=== PATIENT | male | born 1960 | race Caucasian/White ===

== ENCOUNTER 2023-04-28 07:49 | Emergency (ER) | payer MEDICAID, SELFPAY ==
[2023-04-28] VITALS (32 sets, daily range): BP systolic 138–184; BP diastolic 85–103; PULSE 53–84; RESP 18; TEMP 36.3; O2SAT 95–99; BMI 22.4
--- NOTE | 2023-04-28 08:23 | XR_ITS ---
CHEST TWO VIEW. COMPARISON: NONE. INDICATION: EPIGASTRIC PAIN. TECHNIQUE: TWO VIEW CHEST. FINDINGS: AORTIC TORTUOSITY. SMALL HIATAL HERNIA IS SUSPECTED. THE CARDIAC SILHOUETTE IS ENLARGED. DEGENERATIVE CHANGES. NO INFILTRATE OR EDEMA. NO EFFUSION OR PNEUMOTHORAX. IMPRESSION: NO ACUTE FINDINGS.
--- NOTE | 2023-04-28 08:32 | ED.GENADULT ---
HPI - General Adult General Date Seen: 04/28/23 Chief complaint: Chest Pain Stated complaint: Chest pain Time Seen by Provider: 04/28/23 08:15 Source: patient Mode of arrival: ambulatory Limitations: no limitations History of Present Illness HPI narrative: Patient is a 62-year-old male presenting to the emergency department for lower chest/epigastric pain. He has a history of stomach cancer with the Y valve procedure. States starting last night he developed epigastric pain that he describes as really bad indigestion. Pain seems to be constant since last night with nothing seems to make it better or worse. Has not noticed any hematochezia or melena. States he woke up this morning feeling warm and sweaty. She she that has since resolved. Has not had any shortness of breath, lightheadedness, dizziness, diarrhea, constipation, weakness, numbness. Has noticed there is a specific point in his chest over the rib that is tender to palpation. Is not taking anything for pain yet. Has had some nausea and vomiting. Has had a mild headache. Related Data Home Medications Medication Instructions Recorded Confirmed No Known Home Medications 04/28/23 04/28/23 Allergies Allergy/AdvReac Type Severity Reaction Status Date / Time No Known Drug Allergies Allergy Verified 04/28/23 08:01 [facility] Social History Smoking Status: Light tobacco smoker What tobacco products do you use: cigars Do you use any of these nicotine containing products: None Second hand tobacco smoke exposure: No How often do you have a drink containing alcohol: never How often do you have six or more drinks on one occasion: Never AUDIT-C Alcohol total score: 0 Non-prescribed substance use: denies use Exam Narrative: Exam Narrative: Const: Well-nourished, Well-developed, in mild distress Eyes: PERRL, no conjunctival injection, and symmetrical lids HENT: Atraumatic external nose and ears. Moist mucous membranes. Neck: Symmetric, trachea midline, No thyromegaly. CVS: RRR, No murmurs or gallops. Peripheral pulses 2+ and equal in all extremities RESP: Unlabored respiratory effort. Clear to auscultation bilaterally. GI: He epigastric tenderness, Nondistended, No rebound or guarding. MSK:Extremities w/o deformity, Normal Active ROM, tenderness to palpation over the right lower anterior rib 10 Skin: Warm, Dry. No rashes or lesions. Neuro: Normal Muscle tone, No focal neurological deficits. Psych: Awake, Alert, & Oriented x3. Appropriate mood and affect. Const: Vital Signs, click to edit/add: Vital Signs - 24 hr 04/28/23 08:01 04/28/23 08:02 04/28/23 08:03 Temperature 97.4 F L Pulse Rate 56 L 55 L Pulse Rate [Right Pulse Oximeter] 57 L Respiratory Rate 18 Blood Pressure 179/100 H Blood Pressure [Ri ght Upper Arm] 184/103 H Pulse Oximetry 95 98 98 [facility] 04/28/23 08:15 04/28/23 08:30 04/28/23 09:15 Temperature Pulse Rate 54 L 84 Pulse Rate [Right Pulse Oximeter] Respiratory Rate Blood Pressure 139/100 H Blood Pressure [Ri ght Upper Arm] Pulse Oximetry 97 97 [facility] 04/28/23 09:17 04/28/23 09:37 04/28/23 09:41 Temperature Pulse Rate 54 L 64 57 L Pulse Rate [Right Pulse Oximeter] Respiratory Rate Blood Pressure 157/90 H Blood Pressure [Ri ght Upper Arm] Pulse Oximetry 96 98 98 [facility] 04/28/23 09:45 04/28/23 10:01 04/28/23 10:15 Temperature Pulse Rate 55 L 53 L 55 L Pulse Rate [Right Pulse Oximeter] Respiratory Rate Blood Pressure 160/91 H Blood Pressure [Ri ght Upper Arm] Pulse Oximetry 97 99 98 [facility] 04/28/23 10:30 04/28/23 10:33 04/28/23 10:40 Temperature Pulse Rate 64 61 Pulse Rate [Right Pulse Oximeter] Respiratory Rate Blood Pressure 182/102 H Blood Pressure [Ri ght Upper Arm] Pulse Oximetry 99 98 [facility] 04/28/23 10:45 04/28/23 11:00 04/28/23 11:02 Temperature Pulse Rate 62 59 L 58 L Pulse Rate [Right Pulse Oximeter] Respiratory Rate Blood Pressure 168/89 H Blood Pressure [Ri ght Upper Arm] Pulse Oximetry 98 97 97 [facility] 04/28/23 11:32 04/28/23 11:32 04/28/23 11:36 Temperature Pulse Rate 58 L Pulse Rate [Right Pulse Oximeter] Respiratory Rate Blood Pressure 144/86 H 144/86 H Blood Pressure [Ri ght Upper Arm] Pulse Oximetry 97 Oxygen Delivery Me thod 04/28/23 11:45 04/28/23 12:00 04/28/23 12:02 Temperature Pulse Rate 60 57 L 57 L Pulse Rate [Right Pulse Oximeter] Respiratory Rate Blood Pressure 167/94 H Blood Pressure [Ri ght Upper Arm] Pulse Oximetry 98 97 97 Oxygen Delivery Me thod 04/28/23 12:15 Temperature Pulse Rate 54 L Pulse Rate [Right Pulse Oximeter] Respiratory Rate Blood Pressure Blood Pressure [Ri ght Upper Arm] Pulse Oximetry 97 Oxygen Delivery Me thod Course Vital Signs Vital signs: Initial Vital Signs Temperature 97.4 F L 04/28/23 08:01 Temperature Source Temporal Artery Scan 04/28/23 08:01 Pulse Rate 57 L 04/28/23 08:01 Pulse Rhythm Regular 04/28/23 08:01 Respiratory Rate 18 04/28/23 08:01 Blood Pressure 184/103 H 04/28/23 08:01 Blood Pressure Mean 130 H 04/28/23 08:01 Blood Pressure Position Sitting 04/28/23 08:01 Pulse Oximetry 95 04/28/23 08:01 Oxygen Delivery Method Room Air 04/28/23 08:01 Vital Signs Temperature 97.4 F L 04/28/23 08:01 Pulse Rate 57 L 04/28/23 08:01 Respiratory Rate 18 04/28/23 08:01 Blood Pressure 184/103 H 04/28/23 08:01 Pulse Oximetry 95 04/28/23 08:01 Oxygen Delivery Method Room Air 04/28/23 08:01 Temperature 97.4 F L 04/28/23 08:01 Pulse Rate 54 L 04/28/23 12:15 Respiratory Rate 18 04/28/23 08:01 Blood Pressure 167/94 H 04/28/23 12:02 Pulse Oximetry 97 04/28/23 12:15 Oxygen Delivery Method Room Air 04/28/23 08:01 Medications Administered Medications: Discontinued Medications Generic Name Dose Route Start Last Admin Trade Name Freq PRN Reason Stop Dose Admin Famotidine 20 mg 04/28/23 11:20 04/28/23 11:35 Famotidine 10 Mg/Ml Inj IVP 04/28/23 11:21 20 mg ONCE ONE Administration Lactated Ringer's 1,000 mls @ 1,000 mls/hr 04/28/23 09:03 04/28/23 10:35 Lactated Ringers 1000 Ml IV 04/28/23 10:02 Infused .Q1H ONE Infusion Ketorolac Tromethamine 15 mg 04/28/23 10:08 04/28/23 10:12 Ketorolac 15 Mg/Ml Inj IVP 04/28/23 10:09 15 mg ONCE ONE Administration Lidocaine HCl 7.5 ml 04/28/23 08:23 04/28/23 08:38 Lidocaine Hcl 4 % Top Soln 50 Ml Bottle PO 04/28/23 08:24 7.5 ml ONCE ONE Administration Lidocaine/Aluminum/Magnesium/Simeth 15 ml 04/28/23 08:23 04/28/23 08:38 Mag Hydrox/Aluminum Hyd/Simeth 30 Ml Oral.Susp PO 04/28/23 08:24 15 ml ONCE ONE Administration Metoclopramide HCl 10 mg 04/28/23 10:30 04/28/23 10:37 Metoclopramide Hcl 5 Mg/Ml Inj IVP 04/28/23 10:31 10 mg ONCE ONE Administration Morphine Sulfate 4 mg 04/28/23 09:40 04/28/23 09:46 Morphine 4 Mg/Ml Inj IVP 04/28/23 09:41 Not Given ONCE ONE Ondansetron HCl 4 mg 04/28/23 08:39 04/28/23 08:44 Ondansetron 2 Mg/Ml Inj IVP 04/28/23 08:40 4 mg ONCE ONE Administration Pantoprazole Sodium 40 mg 04/28/23 11:08 04/28/23 11:21 Pantoprazole Sodium 40 Mg Inj IVP 04/28/23 11:09 40 mg ONCE ONE Administration Medical Decision Making MDM Narrative Medical decision making narrative: The patient is a 62-year-old male presenting for lower chest/epigastric pain. His symptoms seem unlikely to be ACS considered location of the pain for with his history will order an EKG, chest x-ray, troponins. He is having some epigastric she is also in differential includes pancreatitis, SBO, gastric ulcers, gastric reflux. CBC, lipase, COVID/flu/RSV, CMP ordered. GI cocktail ordered. Symptoms do not improve with the GI cocktail. He was given Zofran for nausea. CBC and CMP showed no concerning abnormalities. EKG showed no concerning findings. Does have a bifascicular. Troponin and repeat troponin showed no concerning findings. Chest x-ray reviewed by myself and the radiologist was concerning findings COVID/flu/RSV is negative. I did order CT scan with IV contrast of the abdomen pelvis. This was done and returned showing possibly thickened lower esophagus was some fluid in the lower esophagus and mild distension. There is also a hiatal hernia. Patient continues to be symptomatic and symptoms seem to come and go. He states when he burps the symptoms seem to get a lot better. Considering his history we will contact his surgeon the see if there is anything further we should be worried about other than reflux. After speaking to his surgical team they recommend transfer for immediate surgery for concern of possible incarcerated internal hernia. They recommend we place an NG tube will be unable to do that here at this time. Lab Data Labs: Lab Results 04/28/23 04/28/23 04/28/23 Range/Units 08:05 08:50 10:50 WBC 5.57 (4.50-11.00) K/uL RBC 4.39 (4.30-5.90) m/uL Hgb 14.3 (13.5-17.5) gm/dL Hct 43.6 (37.0-53.0) % MCV 99 (80-100) fL MCH 33 (26-34) pg MCHC 33 (32-36) gm/dL RDW Coeff of Milind 13.1 (11.5-15.5) % Plt Count 176 (140-440) K/uL Neut % (Auto) 70.5 (42.0-72.0) % Lymph % (Auto) 17.1 L (20-44) % [place] % (Auto) 6.1 (0.0-11.0) % Eos % (Auto) 5.4 (0.0-7.0) % Baso % (Auto) 0.7 (0.0-3.0) % Neut # (Auto) 3.93 (1.7-7.0) K/uL Lymph # (Auto) 1.00 (0.90-2.90) K/uL [place] # (Auto) 0.30 (0.00-0.90) K/UL Eos # (Auto) 0.30 (0.00-0.50) K/uL Baso # (Auto) 0.04 (0.00-0.30) K/uL Abs Immat Gran (auto) 0.01 (0.00-0.30) K/uL Imm/Tot Granulo (auto) 0.2 % Sodium 140 (135-149) mmol/L Potassium 4.3 (3.6-5.1) mmol/L Chloride 107 (96-114) mmol/L Carbon Dioxide 28 (20-32) mmol/L Anion Gap 5 L (7-15) mEq/L BUN 12 (7-30) mg/dL Creatinine 0.8 (0.5-1.5) mg/dL Estimated Creat Clear 80.04 Estimated GFR 99 ml/min Glucose 121 H (60-115) mg/dL Calcium 9.1 (8.4-10.6) mg/dL Total Bilirubin 0.7 (0.1-1.5) mg/dL AST 26 (12-35) U/L ALT 14 (4-50) U/L Alkaline Phosphatase 96 (40-150) U/L Total Protein 7.4 (6.0-8.3) g/dL Albumin 4.5 (3.3-5.0) g/dL Lipase 25 (23-300) U/L SARS-CoV-2 (PCR) Negative SARS-CoV-2 (Negative) Influenza Type A (PCR) Negative PCR FLU A (Negative) Influenza Type B (PCR) Negative PCR FLU B (Negative) RSV (PCR) Negative PCR RSV (Negative) POC Troponin I 0.01 0.01 (0.01-0.04) ng/ml Imaging Data Chest x-ray: Radiologist's impression: FINDINGS: AORTIC TORTUOSITY. SMALL HIATAL HERNIA IS SUSPECTED. THE CARDIAC SILHOUETTE IS ENLARGED. DEGENERATIVE CHANGES. NO INFILTRATE OR EDEMA. NO EFFUSION OR PNEUMOTHORAX. IMPRESSION: NO ACUTE FINDINGS. CT scan abdomen and pelvis: Radiologist's impression: POSTOPERATIVE CHANGES OF GASTRECTOMY. SOME OF BOWEL CONTENTS EXTEND INTO THE LOWER THORAX. DISTENTION OF THE DISTAL ESOPHAGUS NOTED WITH FLUID AND POSSIBLE WALL THICKENING. COMPARISON WITH OUTSIDE STUDIES FROM [facility] RECOMMENDED. SUBCENTIMETER HYPODENSITIES IN THE LIVER WHICH ARE TOO SMALL TO CHARACTERIZE, AGAIN COMPARISON WITH OUTSIDE STUDIES RECOMMENDED. MULTIPLE SUBCENTIMETER LYMPH NODES IN THE UPPER ABDOMEN OMENTAL FAT ARE INDETERMINATE. NO BOWEL OBSTRUCTION. NO ABSCESS OR DRAINABLE FLUID COLLECTION. ECG Data Attestation: I personally reviewed and interpreted this ECG as follows: Prior ECG tracings: not available for review Interpretation: Sinus bradycardia rate 55 beats per minute, bifascicular block, normal FL interval, no ST or T-wave abnormalities Discharge Plan Discharge Clinical Impression: Abdominal pain Qualifiers: Abdominal location: epigastric Qualified Code(s): R10.13 - Epigastric pain Patient Disposition: [facility] Discharge Location: Condition: Guarded Prescriptions: No Action No Known Home Medications Follow Up/Referrals: Provider,Not a Local [Primary Care Provider] - Stand Alone Forms: [employer] Info Instructions
[2023-04-28] MEDS: MAG HYDROX/ALUMINUM HYD/SIMETH 30 ML ORAL.SUSP 15 ML PO (08:38)
[2023-04-28] MEDS: lidocaine HCL 4 % TOP SOLN 50 ML BOTTLE 7.5 ML PO (08:38)
[2023-04-28] MEDS: ONDANSETRON 2 MG/ML inj 4 MG IVP (08:44)
[2023-04-28 08:52] LABS: Basophils Absolute Auto 0.04 K/uL (0.00-0.30); Basophils Percent Auto 0.7 % (0.0-3.0); Eosinophils Percent Auto 5.4 % (0.0-7.0); Hematocrit 43.6 % (37.0-53.0); Hemoglobin* 14.3 gm/dL (13.5-17.5); Immature Granulocytes Abs Auto 0.01 K/uL (0.00-0.30); Immature Granulocytes Pct Auto 0.2 %; Lymphocytes Percent Auto 17.1 % (20-44); Mean Corpuscular HGB Conc 33 gm/dL (32-36); Mean Corpuscular Hemoglobin 33 pg (26-34); Mean Corpuscular Volume 99 fL (80-100); Monocytes Percent Auto 6.1 % (0.0-11.0); Neutrophils Absolute Auto 3.93 K/uL (1.7-7.0); Neutrophils Percent Auto 70.5 % (42.0-72.0); Platelet Count* 176 K/uL (140-440); RDW Coefficient of Variation % 13.1 % (11.5-15.5); Red Blood Count 4.39 m/uL (4.30-5.90); White Blood Count* 5.57 K/uL (4.50-11.00)
--- NOTE | 2023-04-28 08:53 | CT_ITS ---
CT ABDOMEN AND PELVIS WITH CONTRAST. INDICATION: EPIGASTRIC PAIN. TECHNIQUE: POSTCONTRAST CT ABDOMEN AND PELVIS. 81 ML ISOVUE 370 INTRAVENOUS CONTRAST. COMPARISON: NONE. FINDINGS: NO BASILAR INFILTRATE WITHIN LUNGS. NO PLEURAL EFFUSION OR SUSPICIOUS PULMONARY NODULE. POSTOPERATIVE CHANGES OF GASTRECTOMY NOTED. BOWEL CONTENTS ARE PRESENT WITHIN THE LOWER THORAX MEASURING UP TO 9.6 CM. MILD FLUID DISTENTION OF THE DISTAL ESOPHAGUS NOTED WITH POSSIBLE WALL THICKENING. SUBCENTIMETER HYPODENSITIES ARE PRESENT WITHIN THE LIVER WHICH ARE TOO SMALL TO CHARACTERIZE. THE GALLBLADDER IS ABSENT. NO BILIARY OBSTRUCTION. THE SPLEEN IS NOT ENLARGED. NO ADRENAL LESION. NO HYDRONEPHROSIS. NO SOLID RENAL MASS. PANCREATIC ATROPHY IS PRESENT. ATHEROSCLEROTIC CHANGES WITH ECTATIC DISTAL AORTA. THE BLADDER IS NORMAL. NO BOWEL OBSTRUCTION OR FREE AIR. NO FREE FLUID OR ABSCESS. DEGENERATIVE CHANGES ARE PRESENT AT BOTH HIPS WITH SUBCHONDRAL CYSTIC CHANGE. NUMEROUS SUBCENTIMETER LYMPH NODES ARE PRESENT WITHIN THE UPPER ABDOMEN OMENTAL FAT. BILATERAL PARS DEFECTS ARE PRESENT AT L5. THERE IS NO VERTEBRAL BODY COMPRESSION FRACTURE. IMPRESSION: POSTOPERATIVE CHANGES OF GASTRECTOMY. SOME OF BOWEL CONTENTS EXTEND INTO THE LOWER THORAX. DISTENTION OF THE DISTAL ESOPHAGUS NOTED WITH FLUID AND POSSIBLE WALL THICKENING. COMPARISON WITH OUTSIDE STUDIES FROM [facility] RECOMMENDED. SUBCENTIMETER HYPODENSITIES IN THE LIVER WHICH ARE TOO SMALL TO CHARACTERIZE, AGAIN COMPARISON WITH OUTSIDE STUDIES RECOMMENDED. MULTIPLE SUBCENTIMETER LYMPH NODES IN THE UPPER ABDOMEN OMENTAL FAT ARE INDETERMINATE. NO BOWEL OBSTRUCTION. NO ABSCESS OR DRAINABLE FLUID COLLECTION.
[2023-04-28 08:54] LABS: Slide Review Reflex No
[2023-04-28 09:04] LABS: Chloride* 107 mmol/L (96-114)
[2023-04-28 09:05] LABS: Albumin* 4.5 g/dL (3.3-5.0); Potassium* 4.3 mmol/L (3.6-5.1); Sodium* 140 mmol/L (135-149)
[2023-04-28 09:08] LABS: Alanine Aminotransferase* 14 U/L (4-50); Alkaline Phosphatase* 96 U/L (40-150); Anion Gap 5 mEq/L (7-15); Aspartate Amino Transferase* 26 U/L (12-35); Bilirubin Total* 0.7 mg/dL (0.1-1.5); Blood Urea Nitrogen* 12 mg/dL (7-30); Calcium* 9.1 mg/dL (8.4-10.6); Carbon Dioxide* 28 mmol/L (20-32); Creatinine* 0.8 mg/dL (0.5-1.5); Est. Creatinine Clearance* 80.04; Estimated Glomerular Filt Rate 99 ml/min; Total Protein* 7.4 g/dL (6.0-8.3)
[2023-04-28] MEDS: LACTATED RINGERS 1000 ML 1,000 ML IV (09:16)
[2023-04-28 09:24] LABS: Glucose* 121 mg/dL (60-115)
[2023-04-28 09:39] LABS: PCR FLU A Negative PCR FLU A (Negative); PCR FLU B Negative PCR FLU B (Negative); PCR RSV Negative PCR RSV (Negative); SARS PCR* Negative SARS-CoV-2 (Negative)
[2023-04-28] MEDS: KETOROLAC 15 MG/ML inj IVP (10:12)
[2023-04-28 10:20] LABS: Troponin, Point-of-Care* 0.01 ng/ml (0.01-0.04)
[2023-04-28] MEDS: METOCLOPRAMIDE HCL 5 MG/ML INJ 10 MG IVP (10:37)
[2023-04-28 11:08] LABS: Troponin, Point-of-Care* 0.01 ng/ml (0.01-0.04)
[2023-04-28] MEDS: PANTOPRAZOLE SODIUM 40 MG INJ IVP (11:21)
[2023-04-28] MEDS: FAMOTIDINE 10 MG/ML inj 20 MG IVP (11:35)
[2023-04-28 11:39] LABS: Lipase* 25 U/L (23-300)
--- NOTE | 2023-04-28 13:33 | PC.NURSE ---
Dr. Sharp requested NGT be placed per Chucho URIAS. Spoke with our surgeon to discuss care. Per Dr. Andrea, do not place NGT here. Let [facility] do this as patient does not have barely any stomach and we could go into intestine and cause complications. Recommends this be done under fluoroscopy or with the specialists at [facility]. Communicated this to Dr. Sharp and to [facility] nurse, Damian.
--- NOTE | 2023-04-28 13:41 | ED.NURSE ---
Report given Jason on FR5C. All questions answered.
--- NOTE | 2023-04-28 13:55 | ED.NURSE ---
Report given to EMS
== END 2023-04-28 14:00 | disposition short-term general hospital (02) ==
PROVIDERS: Emergency Provider Student in an Organized Health Care Education/Training Program
DX: R10.13 Epigastric pain (principal)
CPT/HCPCS: 36415; 71046; 74177; 80053; 83690; 84484; 85025; 87631; 93005; 96374; 96375; 99284; 99285; A9270; C9113; J1885; J2405; J2765; J7120; Q9967; S0028

== ENCOUNTER 2023-04-28 13:55 | Outpatient (CLI) | payer MEDICAID, SELFPAY | END 2023-04-28 13:56 | disposition home or self-care (01) | LOC: AMB 04-29 12:49 | PROVIDERS: Visit Provider Student in an Organized Health Care Education/Training Program | DX: R10.13 Epigastric pain (principal) | CPT/HCPCS: A0425; A0428 ==

== ENCOUNTER 2023-07-13 12:44 | Emergency (ER) | payer MEDICAID, SELFPAY ==
[2023-07-13] VITALS (34 sets, daily range): BP systolic 131–205; BP diastolic 79–112; PULSE 62–87; RESP 20; TEMP 36.9; O2SAT 93–100; BMI 23.3
--- NOTE | 2023-07-13 13:15 | CT_ITS ---
Patient: DEISY POLLARD Facility:?[facility] Patient ID:?[id number] Site Patient ID:?[id number]. Site :?[id number] Study:?CT-Abdomen/Pelvis 95CC ISOVUE 370-07/13/2023 2:28:44 PM Ordering Physician:?DR. SPANGLER Final Report: Indication: EPIGASTRIC PAIN. LOWER CP, HX OF INCARCERATED HERNIA Technique: CTA chest, pulmonary embolism protocol and CT abdomen/pelvis with IV contrast, 95 mL Isovue 370 Comparison: CT abdomen/pelvis on April 28, 2023 Findings: The visualized thyroid nodules. No pathologically enlarged lymph nodes throughout the thorax. The heart is normal in size. No pericardial effusion. The thoracic aorta and pulmonary artery are within normal limits in caliber. Examination of the pulmonary arteries is limited secondary to contrast bolus timing; however, there is no obvious pulmonary embolism. Small left pleural effusion with minimal adjacent atelectatic lung. Otherwise, no focal airspace consolidation. No pleural effusion. No suspicious pulmonary nodules or masses. The airways are patent. There is redemonstration of postsurgical changes of gastrectomy with several loops of bowel noted in the left lower thorax. There is no evidence of bowel obstruction or inflammation. No pneumatosis intestinalis. Postsurgical changes of cholecystectomy. No significant biliary ductal dilatation. The liver, spleen, pancreas, and bilateral adrenal glands are within normal limits. The kidneys are normal in size and perfusion a normal fashion. No suspicious enhancing renal masses or lesions. Subcentimeter hypodensities in the bilateral lower poles, too small to characterize, but likely benign cysts. No renal calculi or hydroureteronephrosis. The bladder is unremarkable. The seminal vesicles, prostate, and visualized external genitalia are within normal limits. There is no evidence of bowel obstruction or inflammation. No free air. Trace pelvic free fluid. No pathologically enlarged lymph nodes throughout the abdomen or pelvis. Minimal fusiform aneurysmal dilatation of the infrarenal abdominal aorta, measuring 3.2 centimeters in diameter. The osseous structures are unremarkable for the patient`s age. Impression: 1. Examination of the pulmonary arteries is limited secondary to contrast bolus timing; however, there is no obvious pulmonary embolism. 2. Small left pleural effusion with minimal adjacent atelectatic lung. 3. Redemonstration of postsurgical changes of gastrectomy with several loops of bowel noted in the left lower thorax, increased in size compared to prior exam. There is no evidence of bowel obstruction or inflammation. No pneumatosis intestinalis. 4. No pathologically enlarged lymph nodes throughout the chest, abdomen, or pelvis. 5. No significant free fluid or free air. Please note that all CT scans at this facility use dose modulation, iterative reconstruction, and/or weight-based dosing when appropriate to reduce radiation dose to as low as reasonably achievable. Dictated by Rudi Brown MD @ 07/13/2023 2:45:21 PM Signed by:?Rudi Brown MD @07/13/2023 2:45:21 PM (Electronic Signature)
--- NOTE | 2023-07-13 13:17 | CT_ITS ---
Patient: DEISY POLLARD Facility:?[facility] Patient ID:?[id number] Site Patient ID:?[id number]. Site :?[id number] Study:?CT-Chest PE 95CC ISOVUE 370-07/13/2023 2:27:31 PM Ordering Physician:?DR. SPANGLER Final Report: Indication: EPIGASTRIC PAIN. LOWER CP, HX OF INCARCERATED HERNIA Technique: CTA chest, pulmonary embolism protocol and CT abdomen/pelvis with IV contrast, 95 mL Isovue 370 Comparison: CT abdomen/pelvis on April 28, 2023 Findings: The visualized thyroid nodules. No pathologically enlarged lymph nodes throughout the thorax. The heart is normal in size. No pericardial effusion. The thoracic aorta and pulmonary artery are within normal limits in caliber. Examination of the pulmonary arteries is limited secondary to contrast bolus timing; however, there is no obvious pulmonary embolism. Small left pleural effusion with minimal adjacent atelectatic lung. Otherwise, no focal airspace consolidation. No pleural effusion. No suspicious pulmonary nodules or masses. The airways are patent. There is redemonstration of postsurgical changes of gastrectomy with several loops of bowel noted in the left lower thorax. There is no evidence of bowel obstruction or inflammation. No pneumatosis intestinalis. Postsurgical changes of cholecystectomy. No significant biliary ductal dilatation. The liver, spleen, pancreas, and bilateral adrenal glands are within normal limits. The kidneys are normal in size and perfusion a normal fashion. No suspicious enhancing renal masses or lesions. Subcentimeter hypodensities in the bilateral lower poles, too small to characterize, but likely benign cysts. No renal calculi or hydroureteronephrosis. The bladder is unremarkable. The seminal vesicles, prostate, and visualized external genitalia are within normal limits. There is no evidence of bowel obstruction or inflammation. No free air. Trace pelvic free fluid. No pathologically enlarged lymph nodes throughout the abdomen or pelvis. Minimal fusiform aneurysmal dilatation of the infrarenal abdominal aorta, measuring 3.2 centimeters in diameter. The osseous structures are unremarkable for the patient`s age. Impression: 1. Examination of the pulmonary arteries is limited secondary to contrast bolus timing; however, there is no obvious pulmonary embolism. 2. Small left pleural effusion with minimal adjacent atelectatic lung. 3. Redemonstration of postsurgical changes of gastrectomy with several loops of bowel noted in the left lower thorax, increased in size compared to prior exam. There is no evidence of bowel obstruction or inflammation. No pneumatosis intestinalis. 4. No pathologically enlarged lymph nodes throughout the chest, abdomen, or pelvis. 5. No significant free fluid or free air. Please note that all CT scans at this facility use dose modulation, iterative reconstruction, and/or weight-based dosing when appropriate to reduce radiation dose to as low as reasonably achievable. Dictated by Rudi Brown MD @ 07/13/2023 2:44:45 PM Signed by:?Rudi Brown MD @07/13/2023 2:44:45 PM (Electronic Signature)
--- NOTE | 2023-07-13 13:20 | ED.GENADULT ---
HPI - General Adult General Date Seen: 07/13/23 Chief complaint: Chest Pain Stated complaint: chest p-ain Time Seen by Provider: 07/13/23 13:09 Source: patient, RN notes reviewed and old records reviewed Mode of arrival: ambulatory Limitations: no limitations History of Present Illness HPI narrative: Patient is a 62-year-old male here with his girlfriend for evaluation of epigastric/lower chest pain. His girlfriend notes that he had all of his teeth pulled this morning. That apparently went smoothly and he had been feeling okay. At 10:30 a.m. at home he was sitting on the couch and he developed this pain. He notes that it radiates to the left scapular area, he says is severe. He feels a little nauseated but has not had any vomiting. 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 He status post cholecystectomy. He had a hiatal hernia repaired in April of this year at [facility], and then was seen here shortly afterwards with some epigastric pain, had a CT scan and was sent to [facility] with concerns about a strangulated internal hernia. He does feel today's pain is somewhat similar to that. He denies pleuritic pain, does feel somewhat short of breath. He has not had cough or fever. He denies diarrhea or black/bloody stool. He does not have a history of prior coronary artery disease. He has been a smoker, he says mostly cigars, he quit this habit yesterday. He does not drink alcohol. Denies medication allergies. Related Data Home Medications Medication Instructions Recorded Confirmed amoxicillin 500 mg capsule 500 mg PO 3XD 07/13/23 07/13/23 celecoxib 200 mg capsule 200 mg PO BID 07/13/23 07/13/23 chlorhexidine gluconate 0.12 % PO 07/13/23 mouthwash hydrocodone 5 mg-acetaminophen 325 2 tab PO BID 07/13/23 07/13/23 mg tablet ibuprofen 600 mg tablet 1,200 mg PO BID 07/13/23 07/13/23 ondansetron 4 mg disintegrating mg PO 07/13/23 tablet Allergies Allergy/AdvReac Type Severity Reaction Status Date / Time No Known Drug Allergies Allergy Verified 07/13/23 15:01 Review of Systems Status of ROS: Reports: 10 or more systems reviewed and unremarkable except as noted in History and below [facility] Social History Smoking Status: Current every day smoker What tobacco products do you use: cigars Do you use any of these nicotine containing products: None Second hand tobacco smoke exposure: No How often do you have a drink containing alcohol: never How often do you have six or more drinks on one occasion: Never AUDIT-C Alcohol total score: 0 Non-prescribed substance use: denies use Exam Narrative: Exam Narrative: Vital signs as noted above. In general, an alert, elderly male. He is sitting up in the bed, looks uncomfortable and slightly pale. Head: Normocephalic, atraumatic. Eyes: Pupils are equal reactive. Extraocular movements are full. No conjunctival pallor. ENT: Mucous membranes are moist. Throat is normal. Neck: Supple without lymphadenopathy. Heart: Regular rate and rhythm. No murmur or rub. Lungs: Clear bilaterally. No increased work of breathing, crackles or wheezes. Abdomen: He has some epigastric and right upper quadrant tenderness without rebound guarding or rigidity. Bowel sounds are quiet. Extremities: Well perfused. No edema. No calf tenderness. Pulses are equal in all 4 extremities. Neurologic: Patient is alert and oriented to person and place. Speech is fluent. Face is symmetric. Moves all extremities equally. Affect: Normal. Skin: Warm and dry. Well perfused. Const: Vital Signs, click to edit/add: Vital Signs - 24 hr 07/13/23 13:01 07/13/23 13:16 07/13/23 13:17 Temperature 98.4 F Pulse Rate 69 62 Pulse Rate [Pulse Oximeter] 67 Respiratory Rate 20 Blood Pressure 185/105 H Blood Pressure [Le ft Upper Arm] 205/109 H Pulse Oximetry 99 99 99 Oxygen Delivery Me thod Room Air 07/13/23 13:30 07/13/23 13:42 07/13/23 13:47 Temperature Pulse Rate 63 65 62 Pulse Rate [Pulse Oximeter] Respiratory Rate Blood Pressure 183/98 H 194/98 H Blood Pressure [Le ft Upper Arm] Pulse Oximetry 100 98 99 Oxygen Delivery Me thod 07/13/23 14:00 07/13/23 14:02 07/13/23 14:03 Temperature Pulse Rate 73 74 72 Pulse Rate [Pulse Oximeter] Respiratory Rate Blood Pressure 170/110 H Blood Pressure [Le ft Upper Arm] Pulse Oximetry 96 98 95 Oxygen Delivery Me thod 07/13/23 14:30 07/13/23 14:32 07/13/23 14:33 Temperature Pulse Rate 71 75 72 Pulse Rate [Pulse Oximeter] Respiratory Rate Blood Pressure 194/103 H Blood Pressure [Le ft Upper Arm] Pulse Oximetry 96 95 95 Oxygen Delivery Me thod 07/13/23 14:47 07/13/23 15:00 07/13/23 15:02 Temperature Pulse Rate 68 63 87 Pulse Rate [Pulse Oximeter] Respiratory Rate Blood Pressure 185/101 H 184/96 H Blood Pressure [Le ft Upper Arm] Pulse Oximetry 93 98 95 Oxygen Delivery Me thod 07/13/23 15:17 07/13/23 15:30 07/13/23 15:47 Temperature Pulse Rate 66 64 66 Pulse Rate [Pulse Oximeter] Respiratory Rate Blood Pressure 169/79 H 170/89 H Blood Pressure [Le ft Upper Arm] Pulse Oximetry 94 96 94 Oxygen Delivery Me thod 07/13/23 16:00 07/13/23 16:02 07/13/23 16:17 Temperature Pulse Rate 62 71 67 Pulse Rate [Pulse Oximeter] Respiratory Rate Blood Pressure 165/110 H 176/100 H Blood Pressure [Le ft Upper Arm] Pulse Oximetry 95 97 95 Oxygen Delivery Me thod 07/13/23 16:30 07/13/23 16:32 07/13/23 16:47 Temperature Pulse Rate 68 67 66 Pulse Rate [Pulse Oximeter] Respiratory Rate Blood Pressure 193/111 H 144/112 H Blood Pressure [Le ft Upper Arm] Pulse Oximetry 95 96 96 Oxygen Delivery Me thod Documenting provider has reviewed patient's vital signs: yes Course Course ED Course: On arrival, patient had an EKG which by my review showed a sinus rhythm, right bundle-branch block, no significant change compared to April in this year. His initial troponin is 0. He was maintained on cardiac and pulse ox monitoring. I have ordered morphine, Zofran, a L of normal saline. Diagnostic considerations include acute coronary syndrome, pulmonary embolism, dissection, gastric perforation, volvulus or internal hernia, other bowel obstruction, pancreatitis, gastritis, among others. I think given his gastric cancer, pain in the left shoulder blade area and shortness of breath, it is reasonable to rule him out for pulmonary embolism. I think he needs a CT scan of his abdomen to look for evidence of obstruction from hernia, volvulus, adhesions etcetera. Therefore, I have elected to do a CT of the chest abdomen and pelvis at this time. Other labs are pending. Labs are notable for white blood cell count of 13.5, normal hemoglobin and platelets. Left shift with 92% neutrophils. D-dimer is normal at 0.4. Metabolic panel is normal aside from a blood sugar of 147. Lactate 1.2. LFTs unremarkable, CRP is less than 0.5, lipase 29. Urinalysis is negative. Point of care troponin is 0. CT scan of the chest abdomen and pelvis read as follows by Radiology:Comparison: CT abdomen/pelvis on April 28, 2023 Findings: The visualized thyroid nodules. No pathologically enlarged lymph nodes throughout the thorax. The heart is normal in size. No pericardial effusion. The thoracic aorta and pulmonary artery are within normal limits in caliber. Examination of the pulmonary arteries is limited secondary to contrast bolus timing; however, there is no obvious pulmonary embolism. Small left pleural effusion with minimal adjacent atelectatic lung. Otherwise, no focal airspace consolidation. No pleural effusion. No suspicious pulmonary nodules or masses. The airways are patent. There is redemonstration of postsurgical changes of gastrectomy with several loops of bowel noted in the left lower thorax. There is no evidence of bowel obstruction or inflammation. No pneumatosis intestinalis. Postsurgical changes of cholecystectomy. No significant biliary ductal dilatation. The liver, spleen, pancreas, and bilateral adrenal glands are within normal limits. The kidneys are normal in size and perfusion a normal fashion. No suspicious enhancing renal masses or lesions. Subcentimeter hypodensities in the bilateral lower poles, too small to characterize, but likely benign cysts. No renal calculi or hydroureteronephrosis. The bladder is unremarkable. The seminal vesicles, prostate, and visualized external genitalia are within normal limits. There is no evidence of bowel obstruction or inflammation. No free air. Trace pelvic free fluid. No pathologically enlarged lymph nodes throughout the abdomen or pelvis. Minimal fusiform aneurysmal dilatation of the infrarenal abdominal aorta, measuring 3.2 centimeters in diameter. The osseous structures are unremarkable for the patient`s age. Impression: 1. Examination of the pulmonary arteries is limited secondary to contrast bolus timing; however, there is no obvious pulmonary embolism. 2. Small left pleural effusion with minimal adjacent atelectatic lung. 3. Redemonstration of postsurgical changes of gastrectomy with several loops of bowel noted in the left lower thorax, increased in size compared to prior exam. There is no evidence of bowel obstruction or inflammation. No pneumatosis intestinalis. 4. No pathologically enlarged lymph nodes throughout the chest, abdomen, or pelvis. 5. No significant free fluid or free air. Given patient's history in April, I did reach out to his care team at [facility]. His GI surgeon is Dr. Richardson, hepatobiliary surgery. Phone number [phone]. The nurse practitioner with hepatobiliary surgery who saw him most recently was Elva Mendoza, phone number [phone]. I spoke with Elva, she reviewed his CT scans from today in comparison to scans from several days ago that he had done there and feels he should be transferred to [place] as he has re herniated his hiatal hernia. Arrangements being made for transfer to [facility]. He seems much more comfortable, blood pressure has come down as his pain was controlled. Vital Signs Vital signs: Initial Vital Signs Temperature 98.4 F 07/13/23 13:01 Temperature Source Temporal Artery Scan 07/13/23 13:01 Pulse Rate 67 07/13/23 13:01 Respiratory Rate 20 07/13/23 13:01 Blood Pressure 205/109 H 07/13/23 13:01 Blood Pressure Mean 141 H 07/13/23 13:01 Blood Pressure Position Supine 07/13/23 13:01 Pulse Oximetry 99 07/13/23 13:01 Oxygen Delivery Method Room Air 07/13/23 13:01 Vital Signs Temperature 98.4 F 07/13/23 13:01 Pulse Rate 67 07/13/23 13:01 Respiratory Rate 20 07/13/23 13:01 Blood Pressure 205/109 H 07/13/23 13:01 Pulse Oximetry 99 07/13/23 13:01 Oxygen Delivery Method Room Air 07/13/23 13:01 Temperature 98.4 F 07/13/23 13:01 Pulse Rate 66 07/13/23 16:47 Respiratory Rate 20 07/13/23 13:01 Blood Pressure 144/112 H 07/13/23 16:47 Pulse Oximetry 96 07/13/23 16:47 Oxygen Delivery Method Room Air 07/13/23 13:01 Medications Administered Medications: Discontinued Medications Generic Name Dose Route Start Last Admin Trade Name Viralq PRN Reason Stop Dose Admin Hydromorphone HCl 0.5 mg 07/13/23 13:55 07/13/23 14:03 Hydromorphone 0.5 Mg/0.5 Ml Inj IVP 07/13/23 13:56 0.5 mg ONCE ONE Administration Sodium Chloride 1,000 mls @ 1,000 mls/hr 07/13/23 13:15 07/13/23 13:35 0.9 % Sodium Chloride 1000 Ml IV 07/13/23 14:14 1,000 mls/hr .Q1H EBER Administration Lorazepam 0.5 mg 07/13/23 13:55 07/13/23 14:03 Lorazepam 2 Mg/Ml Inj IVP 07/13/23 13:56 0.5 mg ONCE ONE Administration Morphine Sulfate 4 mg 07/13/23 13:15 07/13/23 13:32 Morphine 4 Mg/Ml Inj IVP 07/13/23 13:16 4 mg ONCE ONE Administration Ondansetron HCl 4 mg 07/13/23 13:15 07/13/23 13:35 Ondansetron 2 Mg/Ml Inj IVP 07/13/23 13:16 4 mg ONCE ONE Administration Medical Decision Making Lab Data Labs: Lab Results 07/13/23 07/13/23 07/13/23 Range/Units 12:56 13:17 13:31 WBC 13.46 H (4.50-11.00) K/uL RBC 4.39 (4.30-5.90) m/uL Hgb 14.1 (13.5-17.5) gm/dL Hct 42.7 (37.0-53.0) % MCV 97 (80-100) fL MCH 32 (26-34) pg MCHC 33 (32-36) gm/dL RDW Coeff of Milind 12.7 (11.5-15.5) % Plt Count 215 (140-440) K/uL Neut % (Auto) 91.8 H (42.0-72.0) % Lymph % (Auto) 3.9 L (20-44) % Oliver % (Auto) 3.9 (0.0-11.0) % Eos % (Auto) 0.1 (0.0-7.0) % Baso % (Auto) 0.1 (0.0-3.0) % Neut # (Auto) 12.40 H (1.7-7.0) K/uL Lymph # (Auto) 0.50 L (0.90-2.90) K/uL Oliver # (Auto) 0.50 (0.00-0.90) K/UL Eos # (Auto) 0.00 (0.00-0.50) K/uL Baso # (Auto) 0.00 (0.00-0.30) K/uL Abs Immat Gran (auto) 0.00 (0.00-0.30) K/uL Imm/Tot Granulo (auto) 0.2 % D-Dimer Quant (PE/DVT) 0.41 (0.00-0.50) ug/ml Sodium 140 (135-149) mmol/L Potassium 3.9 (3.6-5.1) mmol/L Chloride 106 (96-114) mmol/L Carbon Dioxide 25 (20-32) mmol/L Anion Gap 9 (7-15) mEq/L BUN 11 (7-30) mg/dL Creatinine 0.7 (0.5-1.5) mg/dL Estimated Creat Clear 82.99 Estimated GFR 104 ml/min Glucose 147 H (60-115) mg/dL Lactate 2.0 H (0.5-1.9) mmol/L Calcium 9.2 (8.4-10.6) mg/dL Total Bilirubin 0.5 (0.1-1.5) mg/dL Direct Bilirubin 0.2 (0.0-0.5) mg/dL AST 32 (12-35) U/L ALT 20 (4-50) U/L Alkaline Phosphatase 102 (40-150) U/L C-Reactive Protein < 0.5 L (0.5-1.0) mg/dL Total Protein 8.1 (6.0-8.3) g/dL Albumin 4.8 (3.3-5.0) g/dL Lipase 29 (23-300) U/L Urine Color Yellow (Yellow) Urine Appearance Clear (Clear) Urine pH 6.0 (5.0-8.5) Ur Specific [place] 1.025 (1.000-1.030) Urine Protein Negative (Negative) Urine Glucose (UA) Negative (Negative) Urine Ketones Negative (Negative) Urine Blood Trace-intact A (Negative) Urine Nitrite Negative (Negative) Urine Bilirubin Negative (Negative) Urine Urobilinogen 0.2 (0.2-1.0) Ur Leukocyte Esterase Negative (Negative) Urine RBC 0-2 (0-2) Urine WBC 0-2 (0-5) Ur Squamous Epith Cells Few (None-Few) Urine Bacteria None (None) POC Troponin I 0.00 L (0.01-0.04) ng/ml 07/13/23 Range/Units 15:33 WBC (4.50-11.00) K/uL RBC (4.30-5.90) m/uL Hgb (13.5-17.5) gm/dL Hct (37.0-53.0) % MCV (80-100) fL MCH (26-34) pg MCHC (32-36) gm/dL RDW Coeff of Milind (11.5-15.5) % Plt Count (140-440) K/uL Neut % (Auto) (42.0-72.0) % Lymph % (Auto) (20-44) % Oliver % (Auto) (0.0-11.0) % Eos % (Auto) (0.0-7.0) % Baso % (Auto) (0.0-3.0) % Neut # (Auto) (1.7-7.0) K/uL Lymph # (Auto) (0.90-2.90) K/uL Oliver # (Auto) (0.00-0.90) K/UL Eos # (Auto) (0.00-0.50) K/uL Baso # (Auto) (0.00-0.30) K/uL Abs Immat Gran (auto) (0.00-0.30) K/uL Imm/Tot Granulo (auto) % D-Dimer Quant (PE/DVT) (0.00-0.50) ug/ml Sodium (135-149) mmol/L Potassium (3.6-5.1) mmol/L Chloride (96-114) mmol/L Carbon Dioxide (20-32) mmol/L Anion Gap (7-15) mEq/L BUN (7-30) mg/dL Creatinine (0.5-1.5) mg/dL Estimated Creat Clear Estimated GFR ml/min Glucose (60-115) mg/dL Lactate 1.2 (0.5-1.9) mmol/L Calcium (8.4-10.6) mg/dL Total Bilirubin (0.1-1.5) mg/dL Direct Bilirubin (0.0-0.5) mg/dL AST (12-35) U/L ALT (4-50) U/L Alkaline Phosphatase (40-150) U/L C-Reactive Protein (0.5-1.0) mg/dL Total Protein (6.0-8.3) g/dL Albumin (3.3-5.0) g/dL Lipase (23-300) U/L Urine Color (Yellow) Urine Appearance (Clear) Urine pH (5.0-8.5) Ur Specific [place] (1.000-1.030) Urine Protein (Negative) Urine Glucose (UA) (Negative) Urine Ketones (Negative) Urine Blood (Negative) Urine Nitrite (Negative) Urine Bilirubin (Negative) Urine Urobilinogen (0.2-1.0) Ur Leukocyte Esterase (Negative) Urine RBC (0-2) Urine WBC (0-5) Ur Squamous Epith Cells (None-Few) Urine Bacteria (None) POC Troponin I (0.01-0.04) ng/ml Discharge Plan Discharge Prescriptions: No Action celecoxib 200 mg capsule 200 mg PO BID amoxicillin 500 mg capsule 500 mg PO 3XD hydrocodone-acetaminophen 5-325 mg tablet 2 tab PO BID ibuprofen 600 mg tablet 1,200 mg PO BID ondansetron 4 mg tablet,disintegrating PO chlorhexidine gluconate 0.12 % mouthwash PO Follow Up/Referrals: Provider,Not a Local [Primary Care Provider] -
[2023-07-13 13:31] LABS: Basophils Percent Auto 0.1 % (0.0-3.0); Eosinophils Percent Auto 0.1 % (0.0-7.0); Hematocrit 42.7 % (37.0-53.0); Hemoglobin* 14.1 gm/dL (13.5-17.5); Immature Granulocytes Pct Auto 0.2 %; Lymphocytes Percent Auto 3.9 % (20-44); Mean Corpuscular HGB Conc 33 gm/dL (32-36); Mean Corpuscular Hemoglobin 32 pg (26-34); Mean Corpuscular Volume 97 fL (80-100); Monocytes Percent Auto 3.9 % (0.0-11.0); Neutrophils Percent Auto 91.8 % (42.0-72.0); Platelet Count* 215 K/uL (140-440); RDW Coefficient of Variation % 12.7 % (11.5-15.5); Red Blood Count 4.39 m/uL (4.30-5.90); White Blood Count* 13.46 K/uL (4.50-11.00)
[2023-07-13] MEDS: MORPHINE 4 MG/ML INJ IVP (13:32)
[2023-07-13] MEDS: 0.9 % SODIUM CHLORIDE 1000 ml 1,000 ML IV (13:35)
[2023-07-13] MEDS: ONDANSETRON 2 MG/ML inj 4 MG IVP (13:35)
[2023-07-13 13:37] LABS: Slide Review Reflex No
[2023-07-13 13:46] LABS: D Dimer Quantitative* 0.41 ug/ml (0.00-0.50)
[2023-07-13 13:47] LABS: Albumin* 4.8 g/dL (3.3-5.0); Chloride* 106 mmol/L (96-114); Sodium* 140 mmol/L (135-149)
[2023-07-13 13:48] LABS: Potassium* 3.9 mmol/L (3.6-5.1)
[2023-07-13 13:50] LABS: Creatinine* 0.7 mg/dL (0.5-1.5); Est. Creatinine Clearance* 82.99; Estimated Glomerular Filt Rate 104 ml/min
[2023-07-13 13:51] LABS: Alanine Aminotransferase* 20 U/L (4-50); Alkaline Phosphatase* 102 U/L (40-150); Anion Gap 9 mEq/L (7-15); Aspartate Amino Transferase* 32 U/L (12-35); Bilirubin Direct* 0.2 mg/dL (0.0-0.5); Bilirubin Total* 0.5 mg/dL (0.1-1.5); Blood Urea Nitrogen* 11 mg/dL (7-30); Calcium* 9.2 mg/dL (8.4-10.6); Carbon Dioxide* 25 mmol/L (20-32); Glucose* 147 mg/dL (60-115); Lipase* 29 U/L (23-300); Total Protein* 8.1 g/dL (6.0-8.3)
[2023-07-13 13:55] LABS: C Reactive Protein* < 0.5 mg/dL (0.5-1.0)
[2023-07-13] MEDS: HYDROmorphone 0.5 mg/0.5 ml inj IVP ×2 (14:03→17:31)
[2023-07-13] MEDS: LORazepam 2 MG/ML inj 0.5 MG IVP (14:03)
[2023-07-13 15:23] LABS: Appearance Urine Clear (Clear); Bilirubin Urine Negative (Negative); Blood Urine Trace-intact (Negative); Color Urine Yellow (Yellow); Glucose Urine Negative (Negative); Ketones Urine Negative (Negative); Leukocyte Esterase Urine Negative (Negative); Nitrite Urine Negative (Negative); Protein Urine Negative (Negative); Specific Gravity Urine 1.025 (1.000-1.030); Urobilinogen Urine 0.2 (0.2-1.0)
[2023-07-13 15:38] LABS: Lactate Sepsis 2 Hour 1.2 mmol/L (0.5-1.9)
[2023-07-13 15:56] LABS: RBC Urine 0-2 (0-2); Squamous Epithelial Cell Urine Few (None-Few); WBC Urine 0-2 (0-5)
== END 2023-07-13 18:16 | disposition short-term general hospital (02) ==
PROVIDERS: Emergency Provider Emergency Medicine
DX: K44.9 Diaphragmatic hernia without obstruction or gangrene (principal)
CPT/HCPCS: 36415; 71275; 74177; 80048; 80076; 81001; 83605; 83690; 84484; 85025; 85379; 86140; 94761; 96374; 96375; 96376; 99284; 99285; J1170; J2060; J2270; J2405; J7030; Q9967

== ENCOUNTER 2023-07-13 18:00 | Outpatient (CLI) | payer MEDICAID, SELFPAY | END 2023-07-13 18:01 | disposition home or self-care (01) | LOC: AMB 07-20 16:27 | PROVIDERS: Visit Provider Family Medicine | DX: R10.9 Unspecified abdominal pain (principal) | CPT/HCPCS: A0425; A0427 ==